=== PATIENT | male | born 1975 | race Caucasian/White ===

== ENCOUNTER 2020-10-23 13:20 | Inpatient (IN) | payer MEDICAID ==
[~2020-10-23] VITALS: Ht 165.1 cm; Wt 84.8 kg
[2020-10-23] MEDS ORDERED: SODIUM CHLORIDE 0.9% 1000ML BAG (SEPSIS BOLUS) IV ONE (14:15)
[2020-10-23 14:31] LABS: HEMATOCRIT. 45.5 % (42.0-52.0); HEMOGLOBIN. 15.4 g/dL (14.0-18.0); MEAN CORPUSCULAR HEMOGLOBIN 28.7 pg (28.0-32.0); PLATELET 321 x1000/uL (130-400); RED BLOOD CELL COUNT 5.35 mill/uL (4.7-6.1); RED CELL DISTRIBUTION WIDTH 13.5 % (11.6-14.6)
[2020-10-23 14:40] LABS: CHLORIDE 101 mEq/L (98-107)
[2020-10-23 14:41] LABS: PROTHROMBIN TIME 11.2 sec (9.6-11.0)
[2020-10-23] MEDS ORDERED: METRONIDAZOLE 500 MG PREMIX 100 ML IV ONE (14:45)
[2020-10-23 14:47] LABS: PLATELET ESTIMATE NORMAL
[2020-10-23] MEDS: CEFTRIAXONE 1 G PREMIX 50 ML IV ONE ×2 (15:15→16:05)
[2020-10-23] MEDS ORDERED: ACETAMINOPHEN 325MG TABLET PO ONE (16:30)
[2020-10-23] MEDS: PANTOPRAZOLE SODIUM 40 MG/VIAL IV SCH (17:42)
[2020-10-23] MEDS: LEVOFLOXACIN 500MG PREMIX 100 ML IV SCH ×2 (21:13→23:27)
[2020-10-23 22:00] VITALS: BP 111/65
[2020-10-23] MEDS ORDERED: METRONIDAZOLE 500 MG PREMIX 100 ML IV SCH (22:00)
[2020-10-23] MEDS: DEXT 5%/0.45% NACL 1000ML 1,000 ML IV SCH (23:15)
[2020-10-24] MEDS: METRONIDAZOLE 500 MG PREMIX 100 ML IV SCH ×3 (02:05→17:13)
[2020-10-24 04:00] VITALS: BP 122/64
[2020-10-24] MEDS: DEXT 5%/0.45% NACL 1000ML 1,000 ML IV SCH ×2 (05:34→17:12)
[2020-10-24 06:43] LABS: BASOPHILS % 0.3 % (0.0-2.0); EOSINOPHILS % 0.1 % (0.0-5.0); HEMATOCRIT. 41.1 % (42.0-52.0); HEMOGLOBIN. 13.8 g/dL (14.0-18.0); LYMPHOCYTES % 10.5 % (20.0-50.0); MEAN CORPUSCULAR HEMOGLOBIN 28.8 pg (28.0-32.0); MEAN CORPUSCULAR VOLUME 85.5 fL (80.0-94.0); MEAN PLATELET VOLUME 8.8 fl (7.4-10.4); MONOCYTES % 9.9 % (2.0-8.0); NEUTROPHILS % 79.2 % (40.0-76.0); PLATELET 300 x1000/uL (130-400); RED BLOOD CELL COUNT 4.81 mill/uL (4.7-6.1); RED CELL DISTRIBUTION WIDTH 13.3 % (11.6-14.6)
[2020-10-24 07:49] LABS: CHLORIDE 102 mEq/L (98-107)
[2020-10-24 08:52] VITALS: BP 103/54
[2020-10-24] MEDS: PANTOPRAZOLE SODIUM 40 MG/VIAL IV SCH (09:07)
[2020-10-24 12:21] VITALS: BP 118/68
[2020-10-24] MEDS: ONDANSETRON HCL 4MG/2ML INJ IV PRN (12:40)
[2020-10-24 16:20] VITALS: BP 98/55
[2020-10-24] MEDS: HYDROMORPHONE HCL/PF 2MG/ML CPJ IV PRN (16:58)
[2020-10-24 20:00] VITALS: BP 116/62
[2020-10-24 22:06] VITALS: BP 116/62
[2020-10-25] VITALS: BP 111/76
[2020-10-25] MEDS: ONDANSETRON HCL 4MG/2ML INJ IV PRN (01:07)
[2020-10-25] MEDS: METRONIDAZOLE 500 MG PREMIX 100 ML IV SCH ×3 (01:07→18:39)
[2020-10-25 04:00] VITALS: BP 123/84
[2020-10-25 06:00] LABS: HEMATOCRIT. 39.8 % (42.0-52.0); HEMOGLOBIN. 13.4 g/dL (14.0-18.0); MEAN CORPUSCULAR HEMOGLOBIN 28.5 pg (28.0-32.0); MEAN CORPUSCULAR VOLUME 84.6 fL (80.0-94.0); PLATELET 302 x1000/uL (130-400); RED BLOOD CELL COUNT 4.71 mill/uL (4.7-6.1); RED CELL DISTRIBUTION WIDTH 13.2 % (11.6-14.6)
[2020-10-25 06:02] LABS: CHLORIDE 103 mEq/L (98-107)
[2020-10-25 08:00] VITALS: BP 113/74
[2020-10-25] MEDS: PANTOPRAZOLE SODIUM 40 MG/VIAL IV SCH (09:19)
[2020-10-25] MEDS: DEXT 5%/0.45% NACL 1000ML 1,000 ML IV SCH ×2 (09:20→20:33)
[2020-10-25] MEDS: HYDROMORPHONE HCL/PF 2MG/ML CPJ IV PRN ×3 (09:27→21:55)
[2020-10-25 12:00] VITALS: BP 119/74
[2020-10-25] MEDS ORDERED: PNEUMOCOCCAL 23-VAL P-SAC VAC 0.5 ML IM ONE (13:00)
[2020-10-25] MEDS ORDERED: POTASSIUM CHLORIDE INJ 40 MEQ in DEXT 5% WATER 250 ML IV NR (13:30)
[2020-10-25 16:00] VITALS: BP 115/67
[2020-10-25] MEDS: LEVOFLOXACIN 500MG PREMIX 100 ML IV SCH (20:33)
[2020-10-25 20:48] VITALS: BP 117/70
[2020-10-26] VITALS: BP 110/68
[2020-10-26] MEDS: METRONIDAZOLE 500 MG PREMIX 100 ML IV SCH ×3 (01:07→17:30)
[2020-10-26 03:56] LABS: PLATELET ESTIMATE NORMAL
[2020-10-26 04:00] VITALS: BP 108/51
[2020-10-26 07:11] LABS: BASOPHILS % 0.1 % (0.0-2.0); EOSINOPHILS % 1.1 % (0.0-5.0); HEMATOCRIT. 41.2 % (42.0-52.0); HEMOGLOBIN. 13.5 g/dL (14.0-18.0); MEAN CORPUSCULAR VOLUME 85.2 fL (80.0-94.0); MEAN PLATELET VOLUME 8.6 fl (7.4-10.4); MONOCYTES % 10.8 % (2.0-8.0); PLATELET 375 x1000/uL (130-400); RED BLOOD CELL COUNT 4.83 mill/uL (4.7-6.1); RED CELL DISTRIBUTION WIDTH 13.4 % (11.6-14.6)
[2020-10-26 07:58] LABS: CHLORIDE 103 mEq/L (98-107)
[2020-10-26 08:05] VITALS: BP 109/61
[2020-10-26] MEDS: PANTOPRAZOLE SODIUM 40 MG/VIAL IV SCH (09:38)
[2020-10-26] MEDS: DEXT 5%/0.45% NACL 1000ML 1,000 ML IV SCH (11:38)
[2020-10-26 12:05] VITALS: BP 124/66
[2020-10-26 16:02] VITALS: BP 103/57
[2020-10-26] MEDS: ACETAMINOPHEN 325MG TABLET PO PRN (18:56)
[2020-10-26] MEDS: LEVOFLOXACIN 500MG PREMIX 100 ML IV SCH (19:43)
[2020-10-26 20:00] VITALS: BP 123/56
[2020-10-27] VITALS (7 sets, daily range): BP systolic 102–135; BP diastolic 70–90
[2020-10-27] MEDS: HYDROMORPHONE HCL/PF 2MG/ML CPJ IV PRN ×2 (01:41→21:03)
[2020-10-27] MEDS: METRONIDAZOLE 500 MG PREMIX 100 ML IV SCH ×3 (01:43→18:03)
[2020-10-27] MEDS: ACETAMINOPHEN 325MG TABLET PO PRN (05:15)
[2020-10-27] MEDS: DEXT 5%/0.45% NACL 1000ML 1,000 ML IV SCH ×2 (05:15→15:16)
[2020-10-27 06:09] LABS: HEMATOCRIT. 40.2 % (42.0-52.0); HEMOGLOBIN. 13.4 g/dL (14.0-18.0); MEAN CORPUSCULAR HEMOGLOBIN 28.6 pg (28.0-32.0); MEAN CORPUSCULAR VOLUME 85.5 fL (80.0-94.0); MEAN PLATELET VOLUME 8.7 fl (7.4-10.4); PLATELET 399 x1000/uL (130-400); RED CELL DISTRIBUTION WIDTH 13.3 % (11.6-14.6)
[2020-10-27 07:31] LABS: CHLORIDE 101 mEq/L (98-107)
[2020-10-27] MEDS: PANTOPRAZOLE SODIUM 40 MG/VIAL IV SCH (08:16)
[2020-10-27 12:19] LABS: PLATELET ESTIMATE NORMAL
[2020-10-27] MEDS ORDERED: POTASSIUM CHLORIDE INJ 40 MEQ in DEXT 5% WATER 250 ML IV NR (14:00)
[2020-10-27] MEDS: ONDANSETRON HCL 4MG/2ML INJ IV PRN (21:03)
[2020-10-27] MEDS: CEFEPIME 1,000 MG in DEXTROSE 5% WATER 50 ML IV SCH (22:28)
[2020-10-27] MEDS: ZOLPIDEM TARTRATE 5MG TABLET PO PRN (22:32)
[2020-10-28] VITALS: BP 115/75
[2020-10-28] MEDS: METRONIDAZOLE 500 MG PREMIX 100 ML IV SCH ×3 (03:50→17:46)
[2020-10-28] MEDS: DEXT 5%/0.45% NACL 1000ML 1,000 ML IV SCH ×2 (03:51→17:46)
[2020-10-28 04:00] VITALS: BP 118/74
[2020-10-28] MEDS: ACETAMINOPHEN 325MG TABLET PO PRN ×2 (06:35→21:48)
[2020-10-28 06:56] LABS: HEMATOCRIT. 41.2 % (42.0-52.0); MEAN CORPUSCULAR HEMOGLOBIN 28.7 pg (28.0-32.0); MEAN CORPUSCULAR VOLUME 84.7 fL (80.0-94.0); MEAN PLATELET VOLUME 8.5 fl (7.4-10.4); PLATELET 410 x1000/uL (130-400); RED BLOOD CELL COUNT 4.86 mill/uL (4.7-6.1); RED CELL DISTRIBUTION WIDTH 13.5 % (11.6-14.6)
[2020-10-28 07:17] LABS: CHLORIDE 98 mEq/L (98-107)
[2020-10-28 08:00] VITALS: BP 119/78
[2020-10-28] MEDS: CEFEPIME 1,000 MG in DEXTROSE 5% WATER 50 ML IV SCH ×2 (08:24→20:30)
[2020-10-28] MEDS: PANTOPRAZOLE SODIUM 40 MG/VIAL IV SCH (08:24)
[2020-10-28] MEDS ORDERED: DIATR MEGLU/DIATRIZOATE SOLN 30ML PO SCH ×2 (09:15→10:15)
[2020-10-28 10:51] LABS: PLATELET ESTIMATE SLIGHTLY INCREASED
[2020-10-28] MEDS ORDERED: POTASSIUM CHLORIDE 20MEQ TABLET SR PO NR (11:45)
[2020-10-28 11:58] VITALS: BP 120/75
[2020-10-28] MEDS ORDERED: IOHEXOL-300 100 ML BOTTLE ONE (12:40)
[2020-10-28] MEDS ORDERED: POTASSIUM CHLORIDE INJ 40 MEQ in DEXT 5% WATER 250 ML IV NR (13:00)
[2020-10-28 16:46] VITALS: BP 113/77
[2020-10-28] MEDS: FLUCONAZOLE 200 MG/100ML BAG 100 ML IV SCH (21:49)
[2020-10-28] MEDS: ZOLPIDEM TARTRATE 5MG TABLET PO PRN (21:56)
[2020-10-28] MEDS ORDERED: VANCOMYCIN 2,000 MG in DEXT 5% WATER 500 ML IV NR (22:00)
[2020-10-29] VITALS (7 sets, daily range): BP systolic 99–127; BP diastolic 55–88
[2020-10-29] MEDS: VANCOMYCIN 1 G PREMIX 200 ML IV SCH ×3 (05:47→22:42)
[2020-10-29] MEDS: DEXT 5%/0.45% NACL 1000ML 1,000 ML IV SCH ×2 (05:47→20:20)
[2020-10-29 07:27] LABS: HEMATOCRIT. 38.5 % (42.0-52.0); HEMOGLOBIN. 13.1 g/dL (14.0-18.0); MEAN CORPUSCULAR HEMOGLOBIN 28.6 pg (28.0-32.0); MEAN CORPUSCULAR VOLUME 83.8 fL (80.0-94.0); MEAN PLATELET VOLUME 8.3 fl (7.4-10.4); PLATELET 437 x1000/uL (130-400); RED BLOOD CELL COUNT 4.59 mill/uL (4.7-6.1); RED CELL DISTRIBUTION WIDTH 13.4 % (11.6-14.6)
[2020-10-29 08:34] LABS: CHLORIDE 99 mEq/L (98-107)
[2020-10-29] MEDS: CEFEPIME 1,000 MG in DEXTROSE 5% WATER 50 ML IV SCH ×2 (08:49→20:21)
[2020-10-29] MEDS: PANTOPRAZOLE SODIUM 40 MG/VIAL IV SCH (08:49)
[2020-10-29 13:38] LABS: PLATELET ESTIMATE SLIGHTL
[2020-10-29] MEDS: FLUCONAZOLE 200 MG/100ML BAG 100 ML IV SCH (20:20)
[2020-10-29] MEDS: ACETAMINOPHEN 325MG TABLET PO PRN (23:04)
[2020-10-30] VITALS: BP 112/69
[2020-10-30] MEDS: METRONIDAZOLE 500 MG PREMIX 100 ML IV SCH ×4 (00:02→22:00)
[2020-10-30 04:00] VITALS: BP 108/66
[2020-10-30] MEDS: VANCOMYCIN 1 G PREMIX 200 ML IV SCH (05:30)
[2020-10-30 07:38] LABS: CHLORIDE 97 mEq/L (98-107)
[2020-10-30 07:47] LABS: VANCOMYCIN TROUGH 21.2 ug/mL (5.0-10.0)
[2020-10-30 08:00] VITALS: BP 117/77
[2020-10-30] MEDS: PANTOPRAZOLE SODIUM 40 MG/VIAL IV SCH (08:44)
[2020-10-30] MEDS: CEFEPIME 1,000 MG in DEXTROSE 5% WATER 50 ML IV SCH ×2 (08:44→20:16)
[2020-10-30] MEDS: DEXT 5%/0.45% NACL 1000ML 1,000 ML IV SCH ×2 (11:21→22:00)
[2020-10-30 12:00] VITALS: BP 120/71
[2020-10-30] MEDS ORDERED: POTASSIUM CHLORIDE INJ 40 MEQ in DEXT 5% WATER 250 ML IV NR (13:00)
[2020-10-30 16:00] VITALS: BP 136/84
[2020-10-30 20:00] VITALS: BP 110/66
[2020-10-30] MEDS: FLUCONAZOLE 200 MG/100ML BAG 100 ML IV SCH (20:16)
[2020-10-30] MEDS: ZOLPIDEM TARTRATE 5MG TABLET PO PRN (21:58)
[2020-10-30] MEDS: VANCOMYCIN 1250MG in DEXTROSE 5% WATER 250ML IV SCH (21:58)
[2020-10-31] VITALS: BP 108/62
[2020-10-31 04:00] VITALS: BP 107/64
[2020-10-31] MEDS: METRONIDAZOLE 500 MG PREMIX 100 ML IV SCH ×3 (06:02→23:41)
[2020-10-31 08:00] VITALS: BP 120/62
[2020-10-31] MEDS: CEFEPIME 1,000 MG in DEXTROSE 5% WATER 50 ML IV SCH ×2 (08:00→20:21)
[2020-10-31] MEDS: PANTOPRAZOLE SODIUM 40 MG/VIAL IV SCH (08:00)
[2020-10-31 08:07] LABS: BASOPHILS % 0.5 % (0.0-2.0); EOSINOPHILS % 1.5 % (0.0-5.0); LYMPHOCYTES % 10.1 % (20.0-50.0); MEAN CORPUSCULAR HEMOGLOBIN 28.5 pg (28.0-32.0); MEAN CORPUSCULAR VOLUME 85.1 fL (80.0-94.0); MEAN PLATELET VOLUME 7.9 fl (7.4-10.4); MONOCYTES % 7.8 % (2.0-8.0); NEUTROPHILS % 80.1 % (40.0-76.0); PLATELET 523 x1000/uL (130-400); RED BLOOD CELL COUNT 4.59 mill/uL (4.7-6.1); RED CELL DISTRIBUTION WIDTH 13.4 % (11.6-14.6)
[2020-10-31 08:27] LABS: CHLORIDE 102 mEq/L (98-107)
[2020-10-31] MEDS: VANCOMYCIN 1250MG in DEXTROSE 5% WATER 250ML IV SCH ×2 (10:02→20:22)
[2020-10-31] MEDS: DEXT 5%/0.45% NACL 1000ML 1,000 ML IV SCH (10:55)
[2020-10-31] MEDS: POTASSIUM CHLORIDE 20MEQ TABLET SR PO SCH ×2 (10:55→16:16)
[2020-10-31 12:00] VITALS: BP 115/66
[2020-10-31 16:00] VITALS: BP 106/69
[2020-10-31 20:00] VITALS: BP 113/72
[2020-10-31] MEDS: FLUCONAZOLE 200 MG/100ML BAG 100 ML IV SCH (20:22)
[2020-10-31] MEDS: ZOLPIDEM TARTRATE 5MG TABLET PO PRN (23:41)
[2020-11-01] VITALS: BP 116/62
[2020-11-01] MEDS: DEXT 5%/0.45% NACL 1000ML 1,000 ML IV SCH ×2 (00:06→14:16)
[2020-11-01 04:00] VITALS: BP 109/68
[2020-11-01 06:12] LABS: BASOPHILS % 0.3 % (0.0-2.0); EOSINOPHILS % 2.3 % (0.0-5.0); HEMATOCRIT. 39.7 % (42.0-52.0); HEMOGLOBIN. 13.2 g/dL (14.0-18.0); MEAN CORPUSCULAR HEMOGLOBIN 28.2 pg (28.0-32.0); MEAN CORPUSCULAR VOLUME 84.7 fL (80.0-94.0); MEAN PLATELET VOLUME 7.7 fl (7.4-10.4); MONOCYTES % 8.7 % (2.0-8.0); NEUTROPHILS % 77.7 % (40.0-76.0); PLATELET 519 x1000/uL (130-400); RED BLOOD CELL COUNT 4.68 mill/uL (4.7-6.1); RED CELL DISTRIBUTION WIDTH 13.2 % (11.6-14.6)
[2020-11-01 06:16] LABS: CHLORIDE 101 mEq/L (98-107)
[2020-11-01] MEDS: METRONIDAZOLE 500 MG PREMIX 100 ML IV SCH ×3 (06:20→22:44)
[2020-11-01 08:00] VITALS: BP 110/97
[2020-11-01] MEDS: VANCOMYCIN 1250MG in DEXTROSE 5% WATER 250ML IV SCH ×3 (08:30→23:42)
[2020-11-01] MEDS: PANTOPRAZOLE SODIUM 40 MG/VIAL IV SCH (08:30)
[2020-11-01] MEDS: POTASSIUM CHLORIDE 20MEQ TABLET SR PO SCH ×2 (08:37→16:37)
[2020-11-01] MEDS: CEFEPIME 1,000 MG in DEXTROSE 5% WATER 50 ML IV SCH ×2 (10:27→21:56)
[2020-11-01 12:00] VITALS: BP 109/71
[2020-11-01 16:00] VITALS: BP 106/69
[2020-11-01 20:00] VITALS: BP 124/80
[2020-11-01] MEDS: FLUCONAZOLE 200 MG/100ML BAG 100 ML IV SCH (21:58)
[2020-11-01] MEDS: ACETAMINOPHEN 325MG TABLET PO PRN (22:42)
[2020-11-02] VITALS: BP 96/66
[2020-11-02 04:00] VITALS: BP 102/73
[2020-11-02] MEDS: DEXT 5%/0.45% NACL 1000ML 1,000 ML IV SCH ×2 (05:17→21:21)
[2020-11-02] MEDS: METRONIDAZOLE 500 MG PREMIX 100 ML IV SCH ×2 (06:44→14:51)
[2020-11-02 07:54] VITALS: BP 97/61
[2020-11-02 08:12] LABS: HEMATOCRIT. 39.1 % (42.0-52.0); HEMOGLOBIN. 13.1 g/dL (14.0-18.0); MEAN CORPUSCULAR HEMOGLOBIN 28.5 pg (28.0-32.0); MEAN PLATELET VOLUME 7.9 fl (7.4-10.4); PLATELET 546 x1000/uL (130-400); RED CELL DISTRIBUTION WIDTH 13.6 % (11.6-14.6)
[2020-11-02] MEDS: CEFEPIME 1,000 MG in DEXTROSE 5% WATER 50 ML IV SCH ×2 (08:26→21:20)
[2020-11-02] MEDS: PANTOPRAZOLE SODIUM 40 MG/VIAL IV SCH (08:26)
[2020-11-02] MEDS: POTASSIUM CHLORIDE 20MEQ TABLET SR PO SCH ×2 (08:26→16:14)
[2020-11-02] MEDS: VANCOMYCIN 1250MG in DEXTROSE 5% WATER 250ML IV SCH ×2 (09:13→15:45)
[2020-11-02 09:36] LABS: CHLORIDE 104 mEq/L (98-107)
[2020-11-02 12:02] VITALS: BP 109/69
[2020-11-02 16:20] VITALS: BP 106/67
[2020-11-02 20:00] VITALS: BP 105/56
[2020-11-02 20:15] LABS: PLATELET ESTIMATE INCREASED
[2020-11-02] MEDS: FLUCONAZOLE 200 MG/100ML BAG 100 ML IV SCH (21:20)
[2020-11-03] VITALS: BP 101/62
[2020-11-03] MEDS: METRONIDAZOLE 500 MG PREMIX 100 ML IV SCH ×2 (00:06→05:53)
[2020-11-03] MEDS: VANCOMYCIN 1250MG in DEXTROSE 5% WATER 250ML IV SCH ×2 (00:06→09:28)
[2020-11-03 04:10] VITALS: BP 106/67
[2020-11-03] MEDS: DEXT 5%/0.45% NACL 1000ML 1,000 ML IV SCH (05:54)
[2020-11-03 07:32] LABS: CHLORIDE 103 mEq/L (98-107)
[2020-11-03 07:40] LABS: VANCOMYCIN TROUGH 24.4 ug/mL (5.0-10.0)
[2020-11-03 08:00] VITALS: BP 105/68
[2020-11-03] MEDS: POTASSIUM CHLORIDE 20MEQ TABLET SR PO SCH (08:29)
[2020-11-03] MEDS: PANTOPRAZOLE SODIUM 40 MG/VIAL IV SCH (08:29)
[2020-11-03] MEDS: CEFEPIME 1,000 MG in DEXTROSE 5% WATER 50 ML IV SCH (08:30)
[2020-11-03 12:00] VITALS: BP 95/52
[2020-11-03 13:48] VITALS: BP 100/59
[2020-11-03] MEDS ORDERED: VANCOMYCIN 1 G PREMIX 200 ML IV SCH (20:00)
== END 2020-11-03 15:29 | disposition home or self-care (01) | DRG 720 ==
LOC: ER 13:26 → EDBEDREQ 16:32 → EDBEDREQTM 16:32 → ENRESERV 21:03 → 6WST 22:07
PROVIDERS: ADMIT Hospitalist; ATTEND Hospitalist
DX: A41.9 Sepsis, unspecified organism (principal); R65.21 Severe sepsis with septic shock; E44.1 Mild protein-calorie malnutrition; K57.20 Diverticulitis of large intestine with perforation and abscess without bleeding; D64.9 Anemia, unspecified; K76.0 Fatty (change of) liver, not elsewhere classified; R16.0 Hepatomegaly, not elsewhere classified; K56.600 Partial intestinal obstruction, unspecified as to cause; K40.30 Unilateral inguinal hernia, with obstruction, without gangrene, not specified as recurrent; Z68.31 Body mass index [BMI] 31.0-31.9, adult
CPT/HCPCS: 36415; 74177; 80048; 80053; 80202; 82270; 83605; 83735; 84145; 85025; 87015; 87045; 87427; 87449; 89055; 90732; 93005; 99291; C9113; J0692; J0696; J1170; J1450; J1956; J2405; J3370; J3480; J3490; J7030; J7060; Q9963; Q9967